=== PATIENT | male | born 1965 | race Caucasian/White ===

== ENCOUNTER → 2017-09-17 16:53 | Outpatient (CLI) | payer OTHER, SELFPAY ==
[2017-09-17 16:59] LABS: Bacteria 0 SEEN /hpf (None Seen); Mucous, Urine 0 SEEN /hpf (<or=2+); Red Blood Cells-Urine 0 SEEN /hpf (0-5); Squamous Epithelial Cells - UA 0 SEEN /hpf (0-5); White Blood Cells 0 SEEN /hpf (0-5)
[2017-09-17 17:38] LABS: Absolute Neutrophil Count 4.2 X10^3/uL (2.0-7.7); Basophil# 0.01 X10^3/uL; Basophil% 0.1 % (0-1); Eosinophil# 0.09 X10^3/uL; Eosinophils% 1.2 % (0-5); Hematocrit 43.7 % (40-54); Hemoglobin 15.4 g/dl (13.0-16.5); Lymphocyte % 34.9 % (19-41); Mean Corp Hgb Conc 35.2 g/gl (32-36); Mean Corpuscular Hgb 30.7 pg (27.0-32.0); Mean Corpuscular Volume 87.1 fL (80-94); Mean Platelet Vol. 12.3 fl (6.2-12.0); Monocyte# 0.59 X10^3/uL; Monocyte% 7.9 % (0-10); Neutrophil # 4.15 X10^3/uL (2.7-7.7); Neutrophil % 55.8 % (47-70); Platelet Count 202 K/mm3 (150-450); RBC Distribution Width CV 12.4 % (11.6-14.6); RBC Distribution Width SD 38.8 fl (35.1-43.9); Red Blood Count 5.02 M/mm3 (4.6-6.2); White Blood Count 7.5 K/mm3 (4.4-11.0)
[2017-09-17 17:50] LABS: Color, Urine Yellow (Yellow); Glucose, Dipstick Normal (Normal); Ketone-Dipstick Negative (Negative); Leukocyte Esterase-Dipstick Negative /ul (Negative); Nitrite-Dipstick Negative (Negative); Occult Blood-Urine Negative /ul (Negative); Protein-Dipstick Negative (Negative); Specific Gravity, Urine 1.025 (1.002-1.030); Urine Bilirubin Dipstick Negative (Negative); Urine Clarity Clear (Clear); Urine Urobilinogen Normal (Normal)
[2017-09-17 17:52] LABS: POSITIVE COUNT NO; POSITIVE DIFFERENTIAL NO; POSITIVE MORPHOLOGY NO
[2017-09-17 19:14] LABS: ALB/GLOB Ratio 1.2 RATIO (0.9-2.4); AST(SGOT) 34 U/L (15-37); Alanine Aminotransfer ALT/SGPT 52 U/L (16-61); Albumin, Serum 4.1 g/dL (3.2-5.0); Alkaline Phosphatase 79 U/L (45-117); Anion Gap 10 (5-15); BUN 16 mg/dL (7-18); BUN/Creat Ratio 14.8 RATIO (10-20); Calcium,Total 8.4 mg/dL (8.5-10.1); Chloride 104 mmol/L (98-107); Cholesterol 193 mg/dL (200); Creatinine, Serum 1.08 mg/dL (0.70-1.30); EST Glomerular Filtration Rate 76 mL/min (>60); Est Glom Filt Rate - Afr Amer 92 mL/min (>60); Globulin 3.3 g/dL (2.2-4.2); Glucose 92 mg/dL (74-106); High Density Lipoprotein 28 mg/dL; Potassium 3.7 mmol/L (3.5-5.1); Protein, Total 7.4 g/dL (6.4-8.2); Sodium Level 141 mmol/L (136-145); Thyroid Stim Hormone (TSH) 1.97 uIU/mL (0.358-3.74); Triglycerides 531 mg/dL
== END ==
PROVIDERS: Family Provider Family Medicine; PCP Family Medicine; Visit Provider Family Medicine
DX: R03.0 Elevated blood-pressure reading, without diagnosis of hypertension (principal); F32.9 Major depressive disorder, single episode, unspecified
CPT/HCPCS: 36415; 80053; 80061; 81001; 84443; 85025

== ENCOUNTER 2017-10-12 09:29 | Day surgery (SDC) | payer OTHER, SELFPAY ==
[2017-10-12] VITALS (7 sets, daily range): BP systolic 125–136; BP diastolic 72–91; PULSE 63–82; RESP 14–16; TEMP 36.2–37.6; O2SAT 92–99; BMI 32.9
--- NOTE | 2017-10-12 10:30 | COLBX_PTH ---
PATIENT: CORIE RICH LOC: EN U#:[id number] AGE/SX: 52/M ROOM: RE10/12/[address]: Dr. Karan Benitez MD : 1965 BED: DIS: 10/12/2017 SPEC #: [id number] RECD: 10/12/17 14:21 STATUS: ALIYAH BLANQUITA #: [id number] PAULINA: 10/12/17 10:[address]: Karan Benitez DEPT: SURGICAL PATHOLOGY RECD BY: Lucius José ENTERED: 10/12/17 14:44 SP TYPE: COLON BX OTHR DR: Dr. Ciro Hunt MD Tissues: Descending colon Procedures: Surgery Specimen Level IV HEADER OPERATION: Colonoscopy ? open access (MAC) PRE-OP DIAGNOSIS: Screening TISSUE SUBMITTED: Polyp at descending colon MICROSCOPIC DIAGNOSIS Polyp at descending colon, biopsy: Tubular adenoma. WILLIAM:robert 10/13/17 MICROSCOPIC DESCRIPTION Slides are reviewed. GROSS DESCRIPTION Received in fixative is one container labeled with the patient's name and designated descending colon polyp. The specimen consists of one irregular fragment of light ramirez soft tissue that measures 0.2 x 0.1 x 0.1 cm. The specimen is totally submitted in one cassette. / AM:robert 10/12/17 TC:1 CPT: 13294
--- NOTE | 2017-10-12 11:00 | PCM.HP.STD ---
Problem List (1) Colon cancer screening Status: Acute History of Present Illness Date of Admission: 10/12/17 The patient is a 52 year old M who presents for a screening colonoscopy. Past Medical History Allergies No Known Allergies Allergy (Verified 10/09/17 09:36) Home Medications: Ambulatory Orders Medication Instructions Recorded Sertraline HCl [Zoloft] 25 mg PO DAILY 10/09/17 Smoking Status: Never smoker - *Family History Maternal History Items: No pertinent history Review of Systems Gastrointestinal: Denies: Abdominal Pain, Constipation, Diarrhea, Hematemesis, Nausea, Melena, Vomiting VTE Information - Inpt Only VTE Present on Admission: No VTE Mechan Device Prophylaxis: None VTE Pharm Prophylaxis ordered?: No Reason prophylaxis not ordered:: Treatment Not Indicated Patient Problems: Active and Suspected Problems Colon cancer screening (Acute) - Physical Exam Lungs: Clear to auscultation Cardiovascular: Regular rate, Regular Rhythm, No murmurs Abdomen: Bowel Sounds Present, Soft, Non Tender, Non-Distended Vital Signs Temp Pulse Resp BP Pulse Ox 97.2 F L 82 14 129/91 H 99 10/12/17 09:52 10/12/17 09:52 10/12/17 09:52 10/12/17 09:52 10/12/17 09:52 Oxygen Delivery Method Room Air Weight: 216 lb 7.903 oz Body Mass Index (BMI) 32.9 Assessment/Plan All Active Problems Colon cancer screening (Acute) To perform a colonoscopy on the patient. Risks benefits have been reviewed.
--- NOTE | 2017-10-12 11:03 | PCM.OPRPT ---
Problem List (1) Colon cancer screening Status: Acute Report of Operation Date of Procedure: 10/12/17 Pre-Operative Diagnosis: Screening colonoscopy Post-Operative Diagnosis: Same Surgery/Procedure Performed:: Colonoscopy with snare polypectomy Type of Anesthesia:: MAC Anesthesiologist: Jesus Almeida Description of Procedure: Patient was brought into the endoscopy suite placed in the left lateral decubitus position he was given graded anesthesia of the scope was inserted into the rectum. The scope was directed through the sigmoid colon, descending colon, transverse colon, descending colon, to the cecum without difficulty. Operative findings: 1. Cecum: Normal appearance no mass lesions normal ileocecal valve. 2. Ascending colon: Normal appearance no mass lesions. 3. Transverse colon: Normal appearance no mass lesions. 4. Descending colon: Normal. Small hyperplastic polyp was identified and removed with snare cautery technique and brought back through the channel of the scope. Excellent hemostasis was noted. 5. Sigmoid colon: Normal appearance no mass lesions scattered diverticuli identified. 6. Rectum: Normal appearance no mass lesions. The scope was withdrawn and digital rectal exam was performed showing no masses within the anus and a smooth small prostate. Patient will need to have another colonoscopy in 3 years - Admit VTE Documentation VTE Present on Admission: No VTE Mechan Device Prophylaxis: None VTE Pharm Prophylaxis ordered?: No Reason prophylaxis not ordered:: Treatment Not Indicated
== END 2017-10-12 11:47 | disposition home or self-care (01) ==
LOC: EN 09:30 → AC 09:33
PROVIDERS: Family Provider Family Medicine; PCP Family Medicine; Visit Provider Surgery
PROC: 0DJD8ZZ Inspection of Lower Intestinal Tract, Via Natural or Artificial Opening Endoscopic (ICD-10-PCS; CPT 45378; principal; 2017-10-12 10:25)
DX: Z12.11 Encounter for screening for malignant neoplasm of colon (principal); D12.4 Benign neoplasm of descending colon; K57.30 Diverticulosis of large intestine without perforation or abscess without bleeding; Z79.899 Other long term (current) drug therapy
CPT/HCPCS: 45380; 88305; J7120

== ENCOUNTER → 2018-01-01 08:01 | Outpatient (CLI) | payer OTHER, SELFPAY ==
--- OUTSIDE RECORDS SUMMARY | 2017-12-31 08:24 | XMS RPT_ITS ---
:1965 Author Organization [facility] Care Team Providers Name Role Phone DOCTOR, OUT OF TOWN Attending Unavailable DOCTOR, OUT OF TOWN Primary Care Unavailable Ciro Hunt Attending Unavailable Ciro Hunt Primary Care Unavailable Nurse, Standard Attending Unavailable Ciro Hunt Referring Unavailable Karan Benitez Attending Unavailable Karan Benitez Referring Unavailable Ciro Hunt Primary Care Unavailable Karan Benitez Attending Unavailable Karan Benitez Referring Unavailable Ciro Hunt Primary Care Unavailable Karan Benitez Consulting Unavailable Ciro Hunt Attending Unavailable Ciro Hunt Primary Care Unavailable PROBLEMS PROBLEMS DATE TYPE CONDITION / CODE ATTENDING STATUS SOURCE 12/08/2017 Unknown R03.0 - Elevated Ciro Hunt Active Colt blood-pressure E Community reading, without Hospital diagnosis of Repository hypertension / R03.0(ICD-10) PROCEDURES PROCEDURES No Procedure Records FoundRESULTS RESULTS OPERATIVE REPORT Observed: 10/12/2017 Status: F Source: MARYAM 11:05 AM [facility] RE[facility] [id number] [place], [place] [address]Cvujeuwee Qqziyh46/06/18 1103MR#: [id number] Acct: [id number]: HILARIOCORIE J Rep #: [id number]: 1965 52 From: Karan Benitez MDPCP: Ciro Hunt MD Status: REG [facility] YLocation: [id number] List(1) Colon cancer screeningStatus: AcuteReport of OperationDate of Procedure: 10/12/17Pre-Operative Diagnosis: Screening colonoscopyPost-Operative Diagnosis: SameSurgery/Procedure Performed:: Colonoscopy with snare polypectomyType of Anesthesia:: Alexandrathesiologist: Perry Almeidacription of Procedure:Patient was brought into the endoscopy suite placed in the left lateral decubitus position hewas given graded anesthesia of the scope was inserted into the rectum. The scope was directedthrough the sigmoid colon, descending colon, transverse colon, descending colon, to the cecumwithout difficulty. Operative findings:1. Cecum: Normal appearance no mass lesions normal ileocecal valve.2. Ascending colon: Normal appearance no mass lesions.3. Transverse colon: Normal appearance no mass lesions.4. Descending colon: Normal. Small hyperplastic polyp was identified and removed with snarecautery technique and brought back through the channel of the scope. Excellent hemostasis wasnoted.5. Sigmoid colon: Normal appearance no mass lesions scattered diverticuli identified.6. Rectum: Normal appearance no mass lesions. The scope was withdrawn and digital rectal examwas performed showing no masses within the anus and a smooth small prostate. Patient will needto have another colonoscopy in 3 years- Admit VTE DocumentationVTE Present on Admission: NoVTE Mechan Device Prophylaxis: NoneVTE Pharm Prophylaxis ordered?: NoReason prophylaxis not ordered:: Treatment Not Ykrjndzew70/06/18 1105 <Electronically signed by Karan Benitez MD>Date Karan Benitez MDCC: Karan Benitez MD; Ciro Hunt MD Signed HISTORY AND PHYSICAL Observed: 10/12/2017 Status: F Source: [place] EXAM 11:02 AM [facility] RE[facility]ITORY [facility] [id number] [place] [address]Dkfogqb and Nsmwwsaf85/06/18 1100MR#: [id number] Acct: [id number]: HILARIOCORIE Marcos Rep #: [id number]: 1965 52 From: Karan Benitez MDPCP: Ciro Hunt MD Status: REG [facility] YLocation: [id number] List(1) Colon cancer screeningStatus: AcuteHistory of Present IllnessDate of Admission: 10/12/17The patient is a 52 year old M who presents for a screening colonoscopy.Past Medical HistoryAllergiesNo Known Allergies Allergy (Verified 10/09/17 09:36)Home Medications:Ambulatory OrdersMedication Instructions RecordedSertraline HCl [Zoloft] 25 mg PO DAILY 10/09/17moking Status: Never smoker- *Family History MaternalHistory Items: No pertinent historyReview of SystemsGastrointestinal: Denies: Abdominal Pain, Constipation, Diarrhea, Hematemesis, Nausea, Melena,VomitingVTE Information - Inpt OnlyVTE Present on Admission: NoVTE Mechan Device Prophylaxis: NoneVTE Pharm Prophylaxis ordered?: NoReason prophylaxis not ordered:: Treatment Not IndicatedPatient Problems:Active and Suspected ProblemsColon cancer screening (Acute)- Physical ExamLungs: Clear to auscultationCardiovascular: Regular rate, Regular Rhythm, No murmursAbdomen: Bowel Sounds Present, Soft, Non Tender, Non-DistendedVital SignsTemp Pulse Resp BP Pulse Ox97.2 F L 82 14 129/91 H 09:52 10/12/17 09:52 10/12/17 09:52 10/12/17 09:52 10/12/17 09:52Oxygen Delivery Method Room AirWeight: 216 lb 7.903 ozBody Mass Index (BMI) 32.9Assessment/PlanAll Active ProblemsColon cancer screening (Acute)To perform a colonoscopy on the patient. Risks benefits have been reviewed.10/12/17 1102 <Electronically signed by Karan Benitez MD>Date Karan Benitez MDCosigner Signature: Date (if applicable)CC: Karan Benitez MD; Ciro Hunt MD Signed COLON BIOPSY (CHOOSE Observed: 10/12/2017 Status: F Source: [place] SITE) 10:30 AM [facility] REPOSITORY Patient: CORIE RICH : 1965 (52/M) Acct Num: [id number] Phys: Eli HUNTER,Karan Unit Num: [id number] Loc: EN Specimen: [id number] Received: 10/12/171420 Spec Type: COLON BX TISSUES TISSUES: Descending colon GROSS DESCRIPTION Received in fixative is one container labeled with the patient's name and designated descending colon polyp. The specimen consists of one irregular fragment of light ramirez soft tissue that measures 0.2 x 0.1 x 0.1 cm. The specimen is totally submitted in one cassette. / AM:robert 10/12/17 TC:1 CPT: 80454 HEADER OPERATION: Colonoscopy open access (MAC) PRE-OP DIAGNOSIS: Screening TISSUE SUBMITTED: Polyp at descending colon MICROSCOPIC DESCRIPTION Slides are reviewed. MICROSCOPIC DIAGNOSIS Polyp at descending colon, biopsy: Tubular adenoma. SJ:robert 10/13/17 Signed Gene Flaherty 10/13/17 <signature on file> Performed By: #### PCOLBX ####[facility] [id number] [place], [address] CBC W/DIFF, AUTOMATED Collected: 09/17/2017 Status: F Source: MARYAM 4:56 PM [facility] REPOSITORY Order Comment: Order Date: 09/17/17Order Info: [id number] - CBCD TYPE CODE TESTS RESULT OUT OF RANGE REFERENCE UNITS LAB L100.1000 Normal 4.4-11.0 K/mm3 WBC 7.5 LAB L100.1200 Normal 4.6-6.2 M/mm3 RBC 5.02 LAB L100.1300 Normal 13.0-16.5 g/dl HGB 15.4 LAB L100.1400 Normal 40-54 % HCT 43.7 LAB L100.1500 Normal 80-94 fL MCV 87.1 LAB L100.1600 Normal 27.0-32.0 pg MCH 30.7 LAB L100.1700 Normal 32-36 g/gl MCHC 35.2 LAB L100.1810 Normal 11.6-14.6 % RDW 12.4 CV LAB L100.1820 Normal 35.1-43.9 fl RDW 38.8 SD LAB L100.1900 Normal 150-450 K/mm3 PLT 202 LAB L100.2000 High 6.2-12.0 fl MPV 12.3 LAB L100.2100 Normal 47-70 % NEUT% 55.8 LAB L100.2200 Normal 19-41 % LY% 34.9 LAB L100.2300 Normal 0-10 % MONO% 7.9 LAB L100.2400 Normal 0-5 % EO% 1.2 LAB L100.2500 Normal 0-1 % BASO% 0.1 LAB L100.2550 Normal 0.0-0.9 % IM 0.100 GRAN % Result Comment: IG% - Immature Granulocytes (promyelocytes, myelocytes and metamyelocytes) > 1% indicates that a LEFT SHIFT is Present. LAB L100.2620 Normal 2.0-7.7 X10 3/uL Absolute Neut 4.2 LAB L100.2720 Normal 0.83-4.51 X10 3/ul Absolute Lymph 2.60 Performed By: #### L100.0100, L500.4050, L500.4100, L501.9520 #### [facility] [address] [place], [address] COMPREHENSIVE METABOLIC Collected: 09/17/2017 Status: F Source: MARYAM GOLD 4:56 PM [facility] REPOSITORY Order Comment: Order Date: 09/17/17Order Info: [id number] - CMPOrder Info: [id number] - LIPIDOrder Info: [id number] - TSH TYPE CODE TESTS RESULT OUT OF RANGE REFERENCE UNITS LAB L501.0100 Normal 74-106 mg/dL GLU 92 Result Comment: Please note revised GLUCOSE reference range effective 2017. LAB L501.1000 Normal 7-18 mg/dL BUN 16 LAB L501.1100 Normal 0.70-1.30 mg/dL CREAT,SERUM 1.08 Result Comment: The validity of the calculated GFR AND GFRAA in patients over 70 years has not been determined. Clinical correlation is essential. LAB L501.1110 Normal >60 mL/min EST GFR 76 Result Comment: Non- GFR Calc LAB L501.1115 Normal >60 mL/min EST GFR - AA 92 Result Comment: GFR Calc LAB L501.1300 Normal 10-20 RATIO BUN/CRE 14.8 LAB L501.1500 Normal 6.4-8.2 g/dL T PROT 7.4 LAB L501.1800 Normal 3.2-5.0 g/dL ALB 4.1 LAB L501.1950 Normal 2.2-4.2 g/dL GLOB 3.3 LAB L501.2000 Normal 0.9-2.4 RATIO A/G 1.2 LAB L501.2200 Low 8.5-10.1 mg/dL CA 8.4 LAB L501.4100 Normal 15-37 U/L AST 34 LAB L501.4305 Normal 45-117 U/L ALK P 79 LAB L501.4405 Normal 16-61 U/L ALT 52 LAB L501.4600 Normal 0.20-1.00 mg/dL T BILI 0.40 LAB L501.5300 Normal 136-145 mmol/L NA 141 LAB L501.5600 Normal 3.5-5.1 mmol/L K 3.7 LAB L501.5900 Normal 98-107 mmol/L CL 104 LAB L501.6100 Normal 21.0-32.0 mmol/L CO2 27.0 LAB L501.6200 Normal 5-15 GAP 10 Performed By: #### L100.0100, L500.4050, L500.4100, L501.9520 #### [facility] [address] [place], [place], [address] LIPID PROFILE Collected: 09/17/2017 Status: F Source: MARYAM 4:56 PM [facility] REPOSITORY Order Comment: Order Date: 09/17/17Order Info: [id number] - CMPOrder Info: [id number] - LIPIDOrder Info: [id number] - TSH TYPE CODE TESTS RESULT OUT OF RANGE REFERENCE UNITS LAB L501.4900 Normal 200 mg/dL CHOL 193 Result Comment: <200 mg/dL Desirable 200-240 mg/dL Borderline >240 mg/dL High Risk LAB L501.5000 High mg/dL TRIG 531 Result Comment: The drugs N-Acetylcysteine and Metamizole may falsely depress this assay. TRIGLYCERIDE IS GREATER THAN 400 mg/dL. LDL RESULT IS INVALID AND WILL NOT BE REPORTED. Serum Triglycerides Reference Interval Normal <150 mg/dL Borderline high 150 - 199 mg/dL High 200 - 499 mg/dL Very High > or = 500 mg/dL LAB L501.6400 Low mg/dL HDL 28 Result Comment: The drugs N-Acetylcysteine and Metamizole may falsely depress this assay. Reference Range HDL <40 mg/dL Low HDL Cholesterol HDL >or= 60 mg/dL High HDL Cholesterol LAB L501.6500 Normal 0-130 mg/dL Test not LDL performed LAB L501.6600 Normal 5-40 mg/dL Test not VLDL performed Performed By: #### L100.0100, L500.4050, L500.4100, L501.9520 #### [facility] [address] [place], [place], [id number] THYROID STIM HORMONE Collected: 09/17/2017 Status: F Source: MARYAM (TSH) 4:56 PM [facility] REPOSITORY Order Comment: Order Date: 07/12/18Order Info: [id number] - CMPOrder Info: [id number] - LIPIDOrder Info: [id number] - TSH TYPE CODE TESTS RESULT OUT OF RANGE REFERENCE UNITS LAB L501.9520 Normal 0.358-3.74 uIU/mL TSH 1.97 Performed By: #### L100.0100, L500.4050, L500.4100, L501.9520 #### [facility] [address] [place], [place], [address] URINALYSIS, COMPLETE Collected: 09/17/2017 Status: F Source: [place] 4:56 PM [facility] REPOSITORY Order Comment: How was Urine Obtained? CLEAN CATCH TYPE CODE TESTS RESULT OUT OF RANGE REFERENCE UNITS LAB L400.3000 Normal Yellow COLOR Yellow LAB L400.3050 Normal Clear CLARITY Clear LAB L400.3200 Normal Normal mg/dl GLUCOSE, UR Normal LAB L400.3300 Normal Negative mg/dL BILIRUBIN Negative URINE LAB L400.3400 Normal Negative mg/dl KETONE UR Negative LAB L400.3465 Normal 1.002-1.030 SP.GR. 1.025 DIPSTX LAB L400.3550 Normal 5.0 - 8.0 pH UR 5.0 LAB L400.3600 Normal Negative mg/dl PROT DIPSTX Negative LAB L400.3700 Normal Normal mg/dl UROBILI Normal LAB L400.3750 Normal Negative NITRITE UR Negative LAB L400.3780 Normal Negative /ul OCCULT Negative BLOOD-UR LAB L400.3800 Normal Negative /ul LEUK Negative ESTERASE LAB L400.4050 Normal 0-5 /hpf WBC 0 SEEN LAB L400.4100 Normal 0-5 /hpf RBC-UA 0 SEEN LAB L400.4150 Normal 0-5 /hpf SQUAM EPI 0 SEEN LAB L400.4300 Normal None Seen /hpf BACTERIA 0 SEEN LAB L400.4350 Normal <or=2+ /hpf MUCUS, 0 SEEN URINE Performed By: #### L400.0001 #### [facility] [address] [place], [place], [address] ALLERGIES ALLERGIES DATE TYPE / CODE NAME / CODE REACTION SEVERITY SOURCE 10/09/2017 Drug No Known Unknown [facility] Allergy/4160 Allergies/F00 [facility] [address](SNOMED 2752845(RXNOR Repository CT) M) ENCOUNTERS ENCOUNTERS ADMIT/DISCHARGE ACCOUNT ADMITTING ENCOUNTER LOCATION SOURCE NUMBER CLASS 12/31/2017 [id number] Ambulatory Maryam Maryam 5 [facility] ing:MFPLAB Repository 12/23/2017 [id number] Ambulatory Maryam Colt 6 [facility] ing:MASS Repository 10/12/2017/ [id number] Ambulatory Maryam Colt 8 5 [facility] ing:EN Repository 10/12/2017 [id number] Ambulatory BMSBuilding:B Maryam 1 MS.[facility] Repository 09/23/2017/ [id number] Ambulatory BMSBuilding:B Maryam 8 8 MS.[facility] Repository 09/17/2017 [id number] Ambulatory Colt Colt 0 [facility] ing:MFPLAB Repository PAYERS PAYERS ENCOUNTER GUARANTOR PAYER SUBSCRIBER SOURCE 12/31/2017 CORIE Rodríguez Primary Insurance:[facility] CORIE Rodríguez Colt [id number] [facility] [address]Vpaxwy DOUGLASSDOB: [facility] Number: [id number] [id number] Repository [address]Rfo: 574) Date:9790-71-57AG [phone] () [address], [place] [address]XK: 12/31/2017 Secondary CRYSTAL Colt Insurance:MEDICAL DOUGLASSDOB: [facility] [id number] [facility] Number: Repository [id number] Date:0352-85-14[address], [place] [address]FW: 12/31/2017 Tertiary NOT GIVENUNK Colt Insurance:SELF PAY [facility] Number: Effective Repository Date:2017-12-31 12/23/2017 CORIE Rodríguez Primary NOT GIVENUNK Maryam [id number] Insurance:SELF PAY [place] Number: Effective Repository [phone]: ([phone]) Date:2015-03-15 [phone] () 10/12/2017 CORIE Rodríguez Primary Insurance:UMR CORIE Spivey [id number] [address] [id number] DOUGLASSDOB: [facility] Number: [id number], [place] [id number] Repository [address]Zlh: [phone]) Date:2569-66-83BN [phone] () [address] [place] [phone]: 10/12/2017 Secondary CRYSTAL Maryam Insurance:MEDICAL DOUGLASSDOB: [facility] [id number] Hospital Number: Repository [id number] Date:4001-98-49LA [address] [place] [phone]: 10/12/2017 Tertiary NOT GIVENUNK Maryam Insurance:SELF PAY [facility] Number: Effective Repository Date:2017-09-23 10/12/2017 CORIE Rodríguez Primary Insurance:UMR CORIE Godinezoster [id number] JOSE [id number] DOUGLASSDOB: [facility] Number: [id number], [place] [id number] Repository [address]Cqt: ([phone]) Date:0765-15-57NC [phone] () [address] [place] [phone]: 10/12/2017 Secondary CRYSTAL Maryam Insurance:MEDICAL DOUGLASSDOB: [facility] [id number] Hospital Number: Repository [id number] Date:4705-62-19IZ [address] [place] [phone]: 10/12/2017 Tertiary NOT GIVENUNK Colt Insurance:SELF PAY [facility] Number: Effective Repository Date:2017-10-12 09/23/2017 CORIE Primary Insurance:UMR CORIE Spivey [id number] JO[address] [id number] DOUGLASSDOB: [facility] Number: [id number], [place] [id number] Repository [address]Vbe: ([phone]) Date:6139-28-26RA [phone] () [address], [place] [address]WT: 09/23/2017 Secondary NOT GIVENUNK Colt Insurance:SELF PAY [facility] Number: Effective Repository Date:2017-09-23 09/17/2017 CORIE Rodríguez Primary Insurance:UMR CORIE Rodríguez Maryam [id number] [facility] [id number] DOUGLASSDOB: [facility] Number: [id number], [place] [id number] Repository [address]Siq: ([phone]) Date:6283-37-92FE [phone] () [address], [place] [address]ZY: 09/17/2017 Secondary CORIE Rodríguez Colt Insurance:MEDICAL DOUGLASSDOB: [facility] [id number] Hospital Number: Repository [id number] Date:7095-50-47LQ [address], [place] [address]QM: 09/17/2017 Tertiary NOT GIVENUNK Maryam Insurance:SELF PAY [facility] Number: Effective Repository Date:2017-09-17
[2018-01-01 08:05] LABS: Bacteria 0 SEEN /hpf (None Seen); Mucous, Urine 0 SEEN /hpf (<or=2+); Red Blood Cells-Urine 0 SEEN /hpf (0-5); Squamous Epithelial Cells - UA 0 SEEN /hpf (0-5); White Blood Cells 0 SEEN /hpf (0-5)
[2018-01-01 10:11] LABS: Color, Urine Yellow (Yellow); Glucose, Dipstick Normal (Normal); Ketone-Dipstick Negative (Negative); Leukocyte Esterase-Dipstick Negative /ul (Negative); Nitrite-Dipstick Negative (Negative); Occult Blood-Urine Negative /ul (Negative); Protein-Dipstick Negative (Negative); Specific Gravity, Urine 1.015 (1.002-1.030); Urine Bilirubin Dipstick Negative (Negative); Urine Clarity Clear (Clear); Urine Urobilinogen Normal (Normal)
[2018-01-01 10:17] LABS: Absolute Lymphocyte Count 1.78 X10^3/ul (0.83-4.51); Absolute Neutrophil Count 2.8 X10^3/uL (2.0-7.7); Basophil# 0.02 X10^3/uL; Basophil% 0.4 % (0-1); Eosinophil# 0.06 X10^3/uL; Eosinophils% 1.2 % (0-5); Hematocrit 45.5 % (40-54); Hemoglobin 15.8 g/dl (13.0-16.5); Lymphocyte # 1.78 X10^3/ul (4.0); Lymphocyte % 35.9 % (19-41); Mean Corp Hgb Conc 34.7 g/gl (32-36); Mean Corpuscular Hgb 30.5 pg (27.0-32.0); Mean Corpuscular Volume 87.8 fL (80-94); Mean Platelet Vol. 12.5 fl (6.2-12.0); Monocyte# 0.34 X10^3/uL; Monocyte% 6.9 % (0-10); Neutrophil # 2.75 X10^3/uL (2.7-7.7); Neutrophil % 55.4 % (47-70); POSITIVE COUNT NO; POSITIVE DIFFERENTIAL NO; POSITIVE MORPHOLOGY NO; Platelet Count 184 K/mm3 (150-450); RBC Distribution Width CV 12.1 % (11.6-14.6); RBC Distribution Width SD 38.8 fl (35.1-43.9); Red Blood Count 5.18 M/mm3 (4.6-6.2)
[2018-01-01 10:35] LABS: ALB/GLOB Ratio 1.1 RATIO (0.9-2.4); AST(SGOT) 21 U/L (15-37); Alanine Aminotransfer ALT/SGPT 42 U/L (16-61); Albumin, Serum 3.8 g/dL (3.2-5.0); Alkaline Phosphatase 72 U/L (45-117); Anion Gap 7 (5-15); BUN 16 mg/dL (7-18); BUN/Creat Ratio 15.5 RATIO (10-20); Calcium,Total 8.7 mg/dL (8.5-10.1); Chloride 106 mmol/L (98-107); Cholesterol 200 mg/dL (200); Creatinine, Serum 1.03 mg/dL (0.70-1.30); EST Glomerular Filtration Rate 80 mL/min (>60); Est Glom Filt Rate - Afr Amer 97 mL/min (>60); Globulin 3.4 g/dL (2.2-4.2); Glucose 97 mg/dL (74-106); High Density Lipoprotein 31 mg/dL; Potassium 3.9 mmol/L (3.5-5.1); Protein, Total 7.2 g/dL (6.4-8.2); Sodium Level 141 mmol/L (136-145); Triglycerides 328 mg/dL; Very Low Density Lipoprotein 66 mg/dL (5-40)
== END ==
PROVIDERS: Family Provider Family Medicine; PCP Family Medicine; Visit Provider Family Medicine
DX: I10 Essential (primary) hypertension (principal); E78.1 Pure hyperglyceridemia
CPT/HCPCS: 36415; 80053; 80061; 81001; 85025

== ENCOUNTER → 2018-04-28 08:03 | Outpatient (CLI) | payer OTHER, SELFPAY ==
[2018-04-28 10:16] LABS: Absolute Lymphocyte Count 1.65 X10^3/ul (0.83-4.51); Absolute Neutrophil Count 3.1 X10^3/uL (2.0-7.7); Basophil# 0.03 X10^3/uL; Basophil% 0.6 % (0-1); Eosinophil# 0.06 X10^3/uL; Eosinophils% 1.1 % (0-5); Hematocrit 46.3 % (40-54); Hemoglobin 15.8 g/dl (13.0-16.5); Lymphocyte # 1.65 X10^3/ul (4.0); Lymphocyte % 31.6 % (19-41); Mean Corp Hgb Conc 34.1 g/gl (32-36); Mean Corpuscular Hgb 30.3 pg (27.0-32.0); Mean Corpuscular Volume 88.9 fL (80-94); Mean Platelet Vol. 12.7 fl (6.2-12.0); Monocyte# 0.34 X10^3/uL; Monocyte% 6.5 % (0-10); Neutrophil # 3.13 X10^3/uL (2.7-7.7); Platelet Count 195 K/mm3 (150-450); RBC Distribution Width CV 12.6 % (11.6-14.6); RBC Distribution Width SD 40.9 fl (35.1-43.9); Red Blood Count 5.21 M/mm3 (4.6-6.2); White Blood Count 5.2 K/mm3 (4.4-11.0)
[2018-04-28 10:21] LABS: ALB/GLOB Ratio 1.4 RATIO (0.9-2.4); AST(SGOT) 27 U/L (15-37); Alanine Aminotransfer ALT/SGPT 54 U/L (16-61); Albumin, Serum 4.2 g/dL (3.2-5.0); Alkaline Phosphatase 71 U/L (45-117); Anion Gap 10 (5-15); BUN 18 mg/dL (7-18); BUN/Creat Ratio 15.7 RATIO (10-20); Calcium,Total 8.9 mg/dL (8.5-10.1); Chloride 105 mmol/L (98-107); Cholesterol 198 mg/dL (200); Creatinine, Serum 1.15 mg/dL (0.70-1.30); EST Glomerular Filtration Rate 70 mL/min (>60); Est Glom Filt Rate - Afr Amer 85 mL/min (>60); Globulin 3.1 g/dL (2.2-4.2); Glucose 93 mg/dL (74-106); High Density Lipoprotein 32 mg/dL; Potassium 3.9 mmol/L (3.5-5.1); Protein, Total 7.3 g/dL (6.4-8.2); Sodium Level 140 mmol/L (136-145); Triglycerides 276 mg/dL; Very Low Density Lipoprotein 55 mg/dL (5-40)
[2018-04-28 10:37] LABS: POSITIVE COUNT NO; POSITIVE DIFFERENTIAL NO; POSITIVE MORPHOLOGY NO
== END ==
PROVIDERS: Family Provider Family Medicine; PCP Family Medicine; Referring Provider Family Medicine; Visit Provider Family Medicine
DX: I10 Essential (primary) hypertension (principal); E78.1 Pure hyperglyceridemia
CPT/HCPCS: 36415; 80053; 80061; 85025

== ENCOUNTER → 2018-11-04 | Outpatient (CLI) | payer OTHER, SELFPAY ==
[2018-11-04 10:34] LABS: ALB/GLOB Ratio 1.2 RATIO (0.9-2.4); AST(SGOT) 25 U/L (15-37); Alanine Aminotransfer ALT/SGPT 48 U/L (16-61); Albumin, Serum 3.9 g/dL (3.2-5.0); Alkaline Phosphatase 66 U/L (45-117); Anion Gap 9 (5-15); BUN 26 mg/dL (7-18); BUN/Creat Ratio 22.2 RATIO (10-20); Calcium,Total 8.8 mg/dL (8.5-10.1); Chloride 107 mmol/L (98-107); Cholesterol 180 mg/dL (200); Creatinine, Serum 1.17 mg/dL (0.70-1.30); EST Glomerular Filtration Rate 69 mL/min (>60); Est Glom Filt Rate - Afr Amer 83 mL/min (>60); Globulin 3.3 g/dL (2.2-4.2); Glucose 94 mg/dL (74-106); High Density Lipoprotein 34 mg/dL; Potassium 3.8 mmol/L (3.5-5.1); Protein, Total 7.2 g/dL (6.4-8.2); Sodium Level 142 mmol/L (136-145); Triglycerides 193 mg/dL; Very Low Density Lipoprotein 39 mg/dL (5-40)
== END | disposition home or self-care (01) ==
LOC: MFPLAB 08:03
PROVIDERS: Family Provider Family Medicine; PCP Family Medicine; Referring Provider Family Medicine; Visit Provider Family Medicine
DX: E78.1 Pure hyperglyceridemia (principal); I10 Essential (primary) hypertension
CPT/HCPCS: 36415; 80053; 80061

== ENCOUNTER → 2019-04-29 | Outpatient (CLI) | payer BC, OTHER, SELFPAY ==
[2019-04-29 10:34] LABS: ALB/GLOB Ratio 1.3 RATIO (0.9-2.4); AST(SGOT) 24 U/L (15-37); Alanine Aminotransfer ALT/SGPT 64 U/L (16-61); Albumin, Serum 4.2 g/dL (3.2-5.0); Alkaline Phosphatase 70 U/L (45-117); Anion Gap 6 (5-15); BUN 19 mg/dL (7-18); BUN/Creat Ratio 17.4 RATIO (10-20); Chloride 104 mmol/L (98-107); Cholesterol 229 mg/dL (200); Creatinine, Serum 1.09 mg/dL (0.70-1.30); EST Glomerular Filtration Rate 75 mL/min (>60); Est Glom Filt Rate - Afr Amer 90 mL/min (>60); Globulin 3.2 g/dL (2.2-4.2); Glucose 97 mg/dL (74-106); High Density Lipoprotein 34 mg/dL; Protein, Total 7.4 g/dL (6.4-8.2); Sodium Level 139 mmol/L (136-145); Triglycerides 299 mg/dL; Very Low Density Lipoprotein 60 mg/dL (5-40)
== END | disposition home or self-care (01) ==
LOC: MFPLAB 08:14
PROVIDERS: PCP Family Medicine; Referring Provider Family Medicine; Visit Provider Family Medicine
DX: I10 Essential (primary) hypertension (principal); E78.1 Pure hyperglyceridemia
CPT/HCPCS: 36415; 80053; 80061

== ENCOUNTER → 2019-11-07 | Outpatient (CLI) | payer BC, OTHER, SELFPAY ==
[2017-10-12 09:52] VITALS: BMI 32.9
[2019-11-07 20:50] LABS: Anion Gap 7 (5-15); BUN 15 mg/dL (7-18); BUN/Creat Ratio 15.4 RATIO (10-20); Calcium,Total 8.7 mg/dL (8.5-10.1); Chloride 105 mmol/L (98-107); Creatinine, Serum 0.98 mg/dL (0.70-1.30); EST Glomerular Filtration Rate 85 mL/min (>60); Est Glom Filt Rate - Afr Amer 102 mL/min (>60); Glucose 78 mg/dL (74-106); Potassium 2.9 mmol/L (3.5-5.1); Sodium Level 139 mmol/L (136-145)
== END | disposition home or self-care (01) ==
LOC: MFPLAB 16:27
PROVIDERS: PCP Family Medicine; Referring Provider Family Medicine; Visit Provider Family Medicine
DX: I10 Essential (primary) hypertension (principal); Z12.5 Encounter for screening for malignant neoplasm of prostate
CPT/HCPCS: 36415; 80048; 84153; G0103

== ENCOUNTER → 2019-11-15 | Outpatient (CLI) | payer BC, OTHER, SELFPAY ==
[2017-10-12 09:52] VITALS: BMI 32.9
[2019-11-15 18:25] LABS: Cholesterol 201 mg/dL (200); High Density Lipoprotein 31 mg/dL; Potassium 3.2 mmol/L (3.5-5.1); Triglycerides 398 mg/dL; Very Low Density Lipoprotein 80 mg/dL (5-40)
== END | disposition home or self-care (01) ==
LOC: MFPLAB 16:43
PROVIDERS: PCP Family Medicine; Referring Provider Family Medicine; Visit Provider Family Medicine
DX: E87.6 Hypokalemia (principal); E78.1 Pure hyperglyceridemia
CPT/HCPCS: 36415; 80061; 84132

== ENCOUNTER → 2019-11-25 | Outpatient (CLI) | payer BC, OTHER, SELFPAY ==
[2019-11-25 10:42] LABS: Cholesterol 196 mg/dL (200); High Density Lipoprotein 36 mg/dL; Potassium 3.8 mmol/L (3.5-5.1); Triglycerides 170 mg/dL; Very Low Density Lipoprotein 34 mg/dL (5-40)
== END | disposition home or self-care (01) ==
LOC: MFPLAB 08:07
PROVIDERS: PCP Family Medicine; Referring Provider Family Medicine; Visit Provider Family Medicine
DX: E87.6 Hypokalemia (principal); E78.1 Pure hyperglyceridemia
CPT/HCPCS: 36415; 80061; 84132

== ENCOUNTER → 2020-05-01 15:06 | Outpatient (CLI) | payer BC, OTHER, SELFPAY ==
[2017-10-12 09:52] VITALS: BMI 32.9
[2020-05-01 17:36] LABS: Absolute Lymphocyte Count 2.32 X10^3/uL (0.83-4.51); Absolute Neutrophil Count 3.9 X10^3/uL (2.0-7.7); Basophil# 0.01 X10^3/uL; Basophil% 0.1 % (0-1); Eosinophil# 0.03 X10^3/uL; Eosinophils% 0.4 % (0-5); Hematocrit 49.4 % (40-54); Hemoglobin 16.6 g/dL (13.0-16.5); Lymphocyte # 2.32 X10^3/ul (4.0); Lymphocyte % 34.6 % (19-41); Mean Corp Hgb Conc 33.6 g/dL (32-36); Mean Corpuscular Hgb 29.3 pg (27.0-32.0); Mean Corpuscular Volume 87.1 fL (80-94); Mean Platelet Vol. 12.2 fl (6.2-12.0); NRBC Flagged by Analyzer 0 % (0-5); Neutrophil # 3.93 X10^3/uL (2.7-7.7); Neutrophil % 58.6 % (47-70); Platelet Count 241 K/mm3 (150-450); RBC Distribution Width CV 11.7 % (11.6-14.6); RBC Distribution Width SD 37.6 fl (35.1-43.9); Red Blood Count 5.67 M/mm3 (4.6-6.2); White Blood Count 6.7 K/mm3 (4.4-11.0)
[2020-05-01 18:07] LABS: ALB/GLOB Ratio 1.2 RATIO (0.9-2.4); AST(SGOT) 23 U/L (15-37); Alanine Aminotransfer ALT/SGPT 47 U/L (16-61); Albumin, Serum 4.5 g/dL (3.2-5.0); Alkaline Phosphatase 61 U/L (45-117); Anion Gap 7 (5-15); BUN 13 mg/dL (7-18); BUN/Creat Ratio 12.1 RATIO (10-20); Calcium,Total 9.3 mg/dL (8.5-10.1); Chloride 103 mmol/L (98-107); Cholesterol 239 mg/dL (200); Creatinine, Serum 1.07 mg/dL (0.70-1.30); EST Glomerular Filtration Rate 76 mL/min (>60); Est Glom Filt Rate - Afr Amer 92 mL/min (>60); Globulin 3.6 g/dL (2.2-4.2); Glucose 98 mg/dL (74-106); High Density Lipoprotein 37 mg/dL; Potassium 3.4 mmol/L (3.5-5.1); Protein, Total 8.1 g/dL (6.4-8.2); Sodium Level 136 mmol/L (136-145); Triglycerides 228 mg/dL; Very Low Density Lipoprotein 46 mg/dL (5-40)
== END ==
PROVIDERS: PCP Family Medicine; Referring Provider Family Medicine; Visit Provider Family Medicine
DX: E78.1 Pure hyperglyceridemia (principal); I10 Essential (primary) hypertension
CPT/HCPCS: 36415; 80053; 80061; 85025

== ENCOUNTER → 2020-09-27 11:54 | Outpatient (CLI) | payer BC, OTHER, SELFPAY ==
[2017-10-12 09:52] VITALS: BMI 32.9
--- NOTE | 2020-09-27 12:00 | RAD_ITS ---
STUDY: X-RAY - LEFT FOOT CLINICAL: Male, 54 years old. PAIN TECHNIQUE: 3 view(s) of the foot. COMPARISON: None. FINDINGS: Normal talus, calcaneus, and tarsal bones. Normal visualized subtalar, talonavicular, calcaneocuboid, tarsal and tarsometatarsal articulations. Normal metatarsi. Normal metatarsophalangeal joint of the great toe. Normal tibial and fibular sesamoid bones. Normal interphalangeal joint of the great toe. Normal phalanges of the great toe. Normal second through fifth metatarsophalangeal joints. Normal interphalangeal joints and phalanges of the lesser toes. The soft tissue structures are unremarkable. RAD/Foot min 3 Views IMPRESSION: Normal x-ray examination of the foot. Electronically Signed: Ky Petit MD at 14:53 EDT , Service support ,
== END ==
PROVIDERS: PCP Family Medicine; Referring Provider Family Medicine; Visit Provider Family Medicine
DX: M79.672 Pain in left foot (principal)
CPT/HCPCS: 73630

== ENCOUNTER → 2020-11-01 08:13 | Outpatient (CLI) | payer BC, OTHER, SELFPAY ==
[2020-11-01 08:16] LABS: Bacteria 0 SEEN /hpf (None Seen); Mucous, Urine 0 SEEN /hpf (<or=2+); Red Blood Cells-Urine 0 SEEN /hpf (0-5); Squamous Epithelial Cells - UA 0 SEEN /hpf (0-5)
[2020-11-01 09:56] LABS: Absolute Lymphocyte Count 1.96 X10^3/uL (0.83-4.51); Absolute Neutrophil Count 3.2 X10^3/uL (2.0-7.7); Basophil# 0.03 X10^3/uL; Basophil% 0.5 % (0-1); Eosinophil# 0.09 X10^3/uL; Eosinophils% 1.6 % (0-5); Hematocrit 44.6 % (40-54); Hemoglobin 15.6 g/dL (13.0-16.5); Lymphocyte # 1.96 X10^3/ul (0.83-4.51); Lymphocyte % 34.8 % (19-41); Mean Corpuscular Hgb 30.5 pg (27.0-32.0); Mean Corpuscular Volume 87.1 fL (80-94); Mean Platelet Vol. 11.6 fl (6.2-12.0); Monocyte# 0.38 X10^3/uL; Monocyte% 6.7 % (0-10); NRBC Flagged by Analyzer 0 % (0-5); Neutrophil # 3.16 X10^3/uL (2.7-7.7); Platelet Count 214 K/mm3 (150-450); RBC Distribution Width SD 38.1 fl (35.1-43.9); Red Blood Count 5.12 M/mm3 (4.6-6.2); White Blood Count 5.6 K/mm3 (4.4-11.0)
[2020-11-01 10:25] LABS: ALB/GLOB Ratio 1.1 RATIO (0.9-2.4); AST(SGOT) 18 U/L (15-37); Alanine Aminotransfer ALT/SGPT 47 U/L (16-61); Albumin, Serum 3.9 g/dL (3.2-5.0); Alkaline Phosphatase 63 U/L (45-117); Anion Gap 6 (5-15); BUN 18 mg/dL (7-18); BUN/Creat Ratio 16.4 RATIO (10-20); Calcium,Total 8.5 mg/dL (8.5-10.1); Chloride 106 mmol/L (98-107); Cholesterol 201 mg/dL (200); EST Glomerular Filtration Rate 73 mL/min (>60); Est Glom Filt Rate - Afr Amer 89 mL/min (>60); Globulin 3.5 g/dL (2.2-4.2); Glucose 97 mg/dL (74-106); High Density Lipoprotein 31 mg/dL; Potassium 3.7 mmol/L (3.5-5.1); Protein, Total 7.4 g/dL (6.4-8.2); Sodium Level 139 mmol/L (136-145); Thyroid Stim Hormone (TSH) 1.82 uIU/mL (0.358-3.74); Triglycerides 304 mg/dL; Very Low Density Lipoprotein 61 mg/dL (5-40)
[2020-11-01 12:39] LABS: Color, Urine Yellow (Yellow); Glucose, Dipstick Normal (Normal); Ketone-Dipstick Negative (Negative); Leukocyte Esterase-Dipstick Negative /ul (Negative); Nitrite-Dipstick Negative (Negative); Occult Blood-Urine Negative /ul (Negative); Protein-Dipstick Negative (Negative); Specific Gravity, Urine 1.015 (1.002-1.030); Urine Bilirubin Dipstick Negative (Negative); Urine Clarity Clear (Clear); Urine Urobilinogen Normal (Normal)
[2020-11-01 12:50] LABS: White Blood Cells 0-5 SEEN /hpf (0-5)
== END ==
PROVIDERS: PCP Family Medicine; Visit Provider Family Medicine
DX: I10 Essential (primary) hypertension (principal); E78.1 Pure hyperglyceridemia
CPT/HCPCS: 36415; 80053; 80061; 81001; 84443; 85025

== ENCOUNTER 2021-05-03 07:57 | Outpatient (CLI) | payer BC, SELFPAY ==
[2021-05-03 10:04] LABS: Absolute Lymphocyte Count 2.03 X10^3/uL (0.83-4.51); Absolute Neutrophil Count 3.4 X10^3/uL (2.0-7.7); Basophil# 0.04 X10^3/uL; Basophil% 0.7 % (0-1); Eosinophil# 0.06 X10^3/uL; Hematocrit 46.2 % (40-54); Hemoglobin 16.5 g/dL (13.0-16.5); Lymphocyte # 2.03 X10^3/ul (0.83-4.51); Lymphocyte % 34.6 % (19-41); Mean Corp Hgb Conc 35.7 g/dL (32-36); Mean Corpuscular Hgb 31.5 pg (27.0-32.0); Mean Corpuscular Volume 88.2 fL (80-94); Mean Platelet Vol. 11.8 fl (6.2-12.0); Monocyte# 0.35 X10^3/uL; NRBC Flagged by Analyzer 0 % (0-5); Neutrophil # 3.37 X10^3/uL (2.7-7.7); Neutrophil % 57.5 % (47-70); Platelet Count 230 K/mm3 (150-450); RBC Distribution Width CV 11.9 % (11.6-14.6); RBC Distribution Width SD 38.1 fl (35.1-43.9); Red Blood Count 5.24 M/mm3 (4.6-6.2); White Blood Count 5.9 K/mm3 (4.4-11.0)
[2021-05-03 10:31] LABS: ALB/GLOB Ratio 1.2 RATIO (0.9-2.4); AST(SGOT) 17 U/L (15-37); Alanine Aminotransfer ALT/SGPT 40 U/L (16-61); Albumin, Serum 3.8 g/dL (3.2-5.0); Alkaline Phosphatase 60 U/L (45-117); Anion Gap 5 (5-15); BUN 15 mg/dL (7-18); BUN/Creat Ratio 14.3 RATIO (10-20); Calcium,Total 8.9 mg/dL (8.5-10.1); Chloride 106 mmol/L (98-107); Cholesterol 203 mg/dL (200); Creatinine, Serum 1.05 mg/dL (0.70-1.30); EST Glomerular Filtration Rate 77 mL/min (>60); Est Glom Filt Rate - Afr Amer 93 mL/min (>60); Globulin 3.3 g/dL (2.2-4.2); Glucose 93 mg/dL (74-106); High Density Lipoprotein 32 mg/dL; Potassium 3.4 mmol/L (3.5-5.1); Protein, Total 7.1 g/dL (6.4-8.2); Sodium Level 139 mmol/L (136-145); Triglycerides 261 mg/dL; Very Low Density Lipoprotein 52 mg/dL (5-40)
== END 2021-05-03 23:59 | disposition home or self-care (01) ==
LOC: MFPLAB 08:00
PROVIDERS: PCP Family Medicine; Referring Provider Family Medicine; Visit Provider Family Medicine
DX: I10 Essential (primary) hypertension (principal); E78.1 Pure hyperglyceridemia
CPT/HCPCS: 36415; 80053; 80061; 85025

== ENCOUNTER → 2021-11-06 | Outpatient (CLI) | payer BC, SELFPAY ==
[2021-11-06 08:08] LABS: Bacteria 0 SEEN /hpf (None Seen); Mucous, Urine 0 SEEN /hpf (<or=2+); Red Blood Cells-Urine 0 SEEN /hpf (0-5); Squamous Epithelial Cells - UA 0 SEEN /hpf (0-5); White Blood Cells 0 SEEN /hpf (0-5)
[2021-11-06 10:05] LABS: Absolute Lymphocyte Count 2.14 X10^3/uL (0.83-4.51); Absolute Neutrophil Count 3.1 X10^3/uL (2.0-7.7); Basophil# 0.04 X10^3/uL; Basophil% 0.7 % (0-1); Eosinophil# 0.08 X10^3/uL; Eosinophils% 1.4 % (0-5); Hematocrit 45.8 % (40-54); Hemoglobin 16.4 g/dL (13.0-16.5); Lymphocyte # 2.14 X10^3/ul (0.83-4.51); Lymphocyte % 37.5 % (19-41); Mean Corp Hgb Conc 35.8 g/dL (32-36); Mean Corpuscular Hgb 31.2 pg (27.0-32.0); Mean Corpuscular Volume 87.2 fL (80-94); Mean Platelet Vol. 11.5 fl (6.2-12.0); Monocyte# 0.35 X10^3/uL; Monocyte% 6.1 % (0-10); NRBC Flagged by Analyzer 0 % (0-5); Neutrophil # 3.07 X10^3/uL (2.7-7.7); Neutrophil % 53.8 % (47-70); Platelet Count 218 K/mm3 (150-450); RBC Distribution Width CV 11.8 % (11.6-14.6); RBC Distribution Width SD 37.4 fl (35.1-43.9); Red Blood Count 5.25 M/mm3 (4.6-6.2); White Blood Count 5.7 K/mm3 (4.4-11.0)
[2021-11-06 10:11] LABS: Color, Urine Yellow (Yellow); Glucose, Dipstick Normal (Normal); Ketone-Dipstick Negative (Negative); Leukocyte Esterase-Dipstick Negative /ul (Negative); Nitrite-Dipstick Negative (Negative); Occult Blood-Urine Negative /ul (Negative); Protein-Dipstick Negative (Negative); Specific Gravity, Urine 1.015 (1.002-1.030); Urine Bilirubin Dipstick Negative (Negative); Urine Clarity Clear (Clear); Urine Urobilinogen Normal (Normal)
[2021-11-06 11:26] LABS: ALB/GLOB Ratio 1.3 RATIO (0.9-2.4); AST(SGOT) 25 U/L (15-37); Alanine Aminotransfer ALT/SGPT 47 U/L (16-61); Albumin, Serum 3.9 g/dL (3.2-5.0); Alkaline Phosphatase 64 U/L (45-117); Anion Gap 8 (5-15); BUN 17 mg/dL (7-18); BUN/Creat Ratio 16.2 RATIO (10-20); Chloride 107 mmol/L (98-107); Cholesterol 208 mg/dL (200); Creatinine, Serum 1.05 mg/dL (0.70-1.30); EST Glomerular Filtration Rate 77 mL/min (>60); Est Glom Filt Rate - Afr Amer 93 mL/min (>60); Glucose 104 mg/dL (74-106); High Density Lipoprotein 35 mg/dL; Potassium 4.2 mmol/L (3.5-5.1); Protein, Total 6.9 g/dL (6.4-8.2); Sodium Level 141 mmol/L (136-145); Triglycerides 237 mg/dL; Very Low Density Lipoprotein 47 mg/dL (5-40)
== END | disposition home or self-care (01) ==
LOC: MFPLAB 08:04
PROVIDERS: PCP Family Medicine; Visit Provider Family Medicine
DX: I10 Essential (primary) hypertension (principal); E78.1 Pure hyperglyceridemia
CPT/HCPCS: 36415; 80053; 80061; 81001; 85025

== ENCOUNTER → 2022-05-02 | Outpatient (CLI) | payer BC, SELFPAY ==
[2022-05-02 10:09] LABS: Absolute Neutrophil Count 3.1 X10^3/uL (2.0-7.7); Basophil# 0.04 X10^3/uL; Basophil% 0.7 % (0-1); Eosinophil# 0.06 X10^3/uL; Eosinophils% 1.1 % (0-5); Hematocrit 47.1 % (40-54); Hemoglobin 16.4 g/dL (13.0-16.5); Lymphocyte % 35.5 % (19-41); Mean Corp Hgb Conc 34.8 g/dL (32-36); Monocyte# 0.39 X10^3/uL; Monocyte% 6.9 % (0-10); NRBC Flagged by Analyzer 0 % (0-5); Neutrophil # 3.14 X10^3/uL (2.7-7.7); Neutrophil % 55.6 % (47-70); Platelet Count 209 K/mm3 (150-450); RBC Distribution Width SD 39.3 fl (35.1-43.9); Red Blood Count 5.29 M/mm3 (4.6-6.2); White Blood Count 5.6 K/mm3 (4.4-11.0)
[2022-05-02 11:00] LABS: ALB/GLOB Ratio 1.2 RATIO (0.9-2.4); AST(SGOT) 28 U/L (15-37); Alanine Aminotransfer ALT/SGPT 41 U/L (16-61); Albumin, Serum 3.9 g/dL (3.2-5.0); Alkaline Phosphatase 61 U/L (45-117); Anion Gap 8 (5-15); BUN 16 mg/dL (7-18); Calcium,Total 9.2 mg/dL (8.5-10.1); Chloride 105 mmol/L (98-107); Cholesterol 189 mg/dL (200); Creatinine, Serum 1.07 mg/dL (0.70-1.30); EST Glomerular Filtration Rate 75 mL/min (>60); Est Glom Filt Rate - Afr Amer 91 mL/min (>60); Globulin 3.3 g/dL (2.2-4.2); Glucose 93 mg/dL (74-106); High Density Lipoprotein 32 mg/dL; PSA,Total - Annual Screen 1.15 ng/mL (0.00-4.00); Potassium 3.5 mmol/L (3.5-5.1); Protein, Total 7.2 g/dL (6.4-8.2); Sodium Level 141 mmol/L (136-145); Triglycerides 229 mg/dL; Very Low Density Lipoprotein 46 mg/dL (5-40)
== END | disposition home or self-care (01) ==
LOC: MFPLAB 08:07
PROVIDERS: PCP Family Medicine; Referring Provider Family Medicine; Visit Provider Family Medicine
DX: I10 Essential (primary) hypertension (principal); E78.1 Pure hyperglyceridemia; Z12.5 Encounter for screening for malignant neoplasm of prostate
CPT/HCPCS: 36415; 80053; 80061; 84153; 85025; G0103

== ENCOUNTER → 2022-11-21 | Outpatient (CLI) | payer BC, SELFPAY ==
[2022-11-21 08:10] LABS: Bacteria 0 SEEN /hpf (None Seen); Mucous, Urine 0 SEEN /hpf (<or=2+); Red Blood Cells-Urine 0 SEEN /hpf (0-5); Squamous Epithelial Cells - UA 0 SEEN /hpf (0-5); White Blood Cells 0 SEEN /hpf (0-5)
[2022-11-21 10:15] LABS: Absolute Lymphocyte Count 2.06 X10^3/uL (0.83-4.51); Absolute Neutrophil Count 3.8 X10^3/uL (2.0-7.7); Basophil# 0.04 X10^3/uL; Basophil% 0.6 % (0-1); Color, Urine Yellow (Yellow); Eosinophil# 0.05 X10^3/uL; Eosinophils% 0.8 % (0-5); Glucose, Dipstick Normal (Normal); Hematocrit 45.3 % (40-54); Hemoglobin 15.4 g/dL (13.0-16.5); Ketone-Dipstick Negative (Negative); Leukocyte Esterase-Dipstick Negative /ul (Negative); Lymphocyte # 2.06 X10^3/ul (0.83-4.51); Lymphocyte % 32.1 % (19-41); Mean Corpuscular Hgb 30.2 pg (27.0-32.0); Mean Corpuscular Volume 88.8 fL (80-94); Mean Platelet Vol. 11.7 fl (6.2-12.0); Monocyte# 0.48 X10^3/uL; Monocyte% 7.5 % (0-10); NRBC Flagged by Analyzer 0 % (0-5); Neutrophil # 3.76 X10^3/uL (2.7-7.7); Neutrophil % 58.7 % (47-70); Nitrite-Dipstick Negative (Negative); Occult Blood-Urine Negative /ul (Negative); Platelet Count 217 K/mm3 (150-450); Protein-Dipstick Negative (Negative); RBC Distribution Width CV 12.1 % (11.6-14.6); RBC Distribution Width SD 39.8 fl (35.1-43.9); Specific Gravity, Urine 1.015 (1.002-1.030); Urine Bilirubin Dipstick Negative (Negative); Urine Clarity Clear (Clear); Urine Urobilinogen Normal (Normal); White Blood Count 6.4 K/mm3 (4.4-11.0)
[2022-11-21 10:48] LABS: ALB/GLOB Ratio 1.2 RATIO (0.9-2.4); AST(SGOT) 18 U/L (15-37); Alanine Aminotransfer ALT/SGPT 38 U/L (16-61); Albumin, Serum 3.8 g/dL (3.2-5.0); Alkaline Phosphatase 61 U/L (45-117); Anion Gap 5 (5-15); BUN 18 mg/dL (7-18); BUN/Creat Ratio 16.2 RATIO (10-20); Calcium,Total 8.9 mg/dL (8.5-10.1); Chloride 105 mmol/L (98-107); Cholesterol 201 mg/dL (200); Creatinine, Serum 1.11 mg/dL (0.70-1.30); EST Glomerular Filtration Rate 72 mL/min (>60); Est Glom Filt Rate - Afr Amer 87 mL/min (>60); Globulin 3.3 g/dL (2.2-4.2); Glucose 102 mg/dL (74-106); High Density Lipoprotein 33 mg/dL; Potassium 3.5 mmol/L (3.5-5.1); Protein, Total 7.1 g/dL (6.4-8.2); Sodium Level 138 mmol/L (136-145); Thyroid Stim Hormone (TSH) 1.75 uIU/mL (0.358-3.74); Triglycerides 211 mg/dL; Very Low Density Lipoprotein 42 mg/dL (5-40)
== END | disposition home or self-care (01) ==
LOC: MTLAB 08:06
PROVIDERS: PCP Family Medicine; Referring Provider Family Medicine; Visit Provider Family Medicine
DX: I10 Essential (primary) hypertension (principal)
CPT/HCPCS: 36415; 80053; 80061; 81001; 84443; 85025

== ENCOUNTER → 2023-05-22 | Outpatient (CLI) | payer BC, SELFPAY ==
--- OUTSIDE RECORDS SUMMARY | 2023-05-22 08:21 | XMS RPT_ITS | CCD ---
Author Name Unknown Address [address] [place] [address] Organization [facility] Care Team Providers Care Robotics Engineer Name Role Phone Seema Wilkinson LPN Unavailable Seema Wilkinson LPN Unavailable Now Nurse Unavailable Unavailable Now Nurse Unavailable Unavailable Seema Wilkinson LPN Unavailable Medications Completed/Discontinued Medications Medication Drug Class(es) Dates Sig (Normalized) Sig (Original) sertraline 50 mg oral tablet (5 sources) Serotonin Reuptake Inhibitor Start: 10-18-2014 take 1 tablet by mouth once daily ZOLOFT 50 MG TABS One tablet by mouth daily SERTRALINE HCL [id number] Teddy Fadumo Malini DO Problems Active Problems Problem Classification Problem Date Documented Da te Episodic/Chronic Anxiety disorders (5 sources) Anxiety disorder; Translations: [Anxiety disorder, unspecified] Onset: 10-18-2014 10-18-2014 Chronic Disorders of lipid metabolism (5 sources) Hypertriglyceride anthony; Translations: [Pure hyperglyceridemia ] Onset: 10-18-2014 10-18-2014 Chronic Other nutritional; endocrine; and metabolic disorders (5 sources) Obesity; Translations: [Obesity, unspecified] Onset: 10-18-2014 10-18-2014 Chronic Unclassified (4 sources) Screening for malignant neoplasm of colon ; Translations: [Encounter for screening for malignant neoplasm of colon] Onset: 10-18-2014 10-18-2014 Past or Other Problems Problem Classification Problem Date Documented Da te Episodic/Chronic Other circulatory disease (5 sources) Elevated blood-pressure reading without diagnosis of hypertension; Translations: [Elevated blood-pressure reading, without diagnosis of hypertension] Onset: 10-18-2014 10-18-2014 Episodic Other connective tissue disease (5 sources) Rotator cuff syndrome; Translations: [Unspecified rotator cuff tear or rupture of right shoulder, not specified as traumatic] Onset: 10-18-2014 10-18-2014 Episodic Other non-traumatic joint disorders (4 sources) Elbow joint pain; Translations: [Pain in left elbow] Onset: 10-31-2016 10-31-2016 Episodic Sprains and strains (4 sources) Strain of unspecified muscles, fascia and tendons at forearm level, unspecified arm, initial encounter; Translations: [Strain of unspecified muscles, fascia and tendons at forearm level, unspecified arm, initial encounter] Onset: 10-31-2016 10-31-2016 Episodic Results Test Name Value Interpretation Reference Range Facil ity Vital Signs Date Time Vital Sign Value Performing Clinician Tereso becerra 11-11-2016 07:26-0400 BMI (Body Mass Index) 33.45 kg/m2 Seema Wilkinson LPN [facility] Work Phone: 11-11-2016 07:26-0400 Body Temperature 97 [degF] Seema Wilkinson LPN [facility] Work Phone: 11-11-2016 07:26-0400 BP Diastolic 84 mm[Hg] Seema Wilkinson LPN [facility] Work Phone: 11-11-2016 07:26-0400 BP Systolic 132 mm[Hg] Seema Wilkinson LPN [facility] Work Phone: 11-11-2016 07:26-0400 Height 172.72 cm Seema Wilkinson LPN [facility] Work Phone: 11-11-2016 07:26-0400 Pulse (Heart Rate) 70 /min Seema Wilkinson LPN [facility] Work Phone: 11-11-2016 07:26-0400 Respiratory Rate 14 /min Seema Wilkinson LPN [facility] Work Phone: 11-11-2016 07:26-0400 Weight 99.79 kg Seema Wilkinson LPN [facility] Work Phone: 10-31-2016 09:00-0400 BMI (Body Mass Index) 33.84 kg/m2 [facility] Work Phone: 10-31-2016 09:00-0400 Body Temperature 97.4 [degF] [facility] Work Phone: 10-31-2016 09:00-0400 BP Diastolic 96 mm[Hg] [facility] Work Phone: 10-31-2016 09:00-0400 BP Systolic 140 mm[Hg] [facility] Work Phone: 10-31-2016 09:00-0400 Height 172.72 cm [facility] Work Phone: 10-31-2016 09:00-0400 Pulse (Heart Rate) 72 /min [facility] Work Phone: 10-31-2016 09:00-0400 Weight 100.97 kg [facility] Work Phone: 10-18-2014 07:59-0400 BMI (Body Mass Index) 32.75 kg/m2 [facility] Work Phone: 10-18-2014 07:59-0400 Body Temperature 98.5 [degF] [facility] Work Phone: 10-18-2014 07:59-0400 BP Diastolic 90 mm[Hg] [facility] Work Phone: 10-18-2014 07:59-0400 BP Systolic 130 mm[Hg] [facility] Work Phone: 10-18-2014 07:59-0400 BSA (Body Surface Area) 2.14 m2 [facility] Work Phone: 10-18-2014 07:59-0400 Height 173.99 cm [facility] Work Phone: 10-18-2014 07:59-0400 Pulse (Heart Rate) 79 /min [facility] Work Phone: 10-18-2014 07:59-0400 Respiratory Rate 16 /min [facility] Work Phone: 10-18-2014 07:59-0400 Weight 99.[address] [facility] Work Phone: Procedures Date Procedure Procedure Detail Performing Clinician Start: 10-18-2014 Screening for malignant neoplasm of colon Screening, colon cancer Seema Wilkinson VANGIE Start: 10-18-2014 End: 11-27-2014 Surgery Referral Teddy Nayak DO Work Phone: Plan of Treatment Date Care Activity Detail Author Start: 11-11-2016 End: 11-11-2016 Appointment Appointment [facility] Work Phone: Start: 10-31-2016 End: 10-31-2016 Appointment Appointment [facility] Work Phone: Start: 10-31-2016 End: 10-31-2016 X-ray exam of elbow X-Ray, Elbow [facility] Work Phone: Start: 10-18-2014 End: 10-18-2014 *CMP Complete Metabolic Panel *CMP Complete Metabolic Panel [facility] Work Phone: Start: 10-18-2014 End: 10-18-2014 Lipid panel [AGGREGATE] *Lipid Profile [facility] Work Phone: Start: 10-18-2014 End: 11-27-2014 Surgery Referral Surgery Referral Art Sirenamaria guadalupe, [address], [address], [place], [place], [facility] Work Phone: Start: 10-18-2014 End: 10-18-2014 Thyroid stimulating hormone (TSH) *TSH [facility] Work Phone: Progress note 01-18-2021 Note Date & Type Note Facility 01-18-2021 Note HNO ID: [id number] Author: Ariella Hyde PA-C Service: ? Author Type: Physician Log Buyer Type: Progress Notes Filed: 01/18/2021 8:55 AM Note Text: In lieu of an in-person visit due to COVID-19 concerns, a distance health visit was performed on the patient. [facility] but patient encountered difficulty signing into MyChart and requested to complete visit via telephone. Patient is aware that I am not fully able to assess symptoms and do a full physical examination including vital signs assessment at this time. Patient consents to this encounter. No video was used in the evaluation of this patient, as the patient preferred a telephone call. I personally called patient by telephone. FOLLOW UP VISIT - ENDOSCOPY NAME: Corie Rich [facility] NO.: [id number] DATE OF SERVICE: 01/18/2021 : 1965 REFERRING PHYSICIAN: Ciro Hunt MD Corie is a patient I am following for surveillance colonoscopy due to personal history of colon polyps. Dr. Benitez performed lower endoscopy on 01/07/21. The patient was found to have non-bleeding internal hemorrhoids and a 4 mm sigmoid colon polyp which was removed. Pathology demonstrated: FINAL DIAGNOSIS Colon, sigmoid polyp, biopsy (A) - Tubular adenoma. The patient notes no complaints since the procedure. Assessment IMPRESSION: s/p colonoscopy with polypectomy, single 4 mm tubular adenoma PLAN: The operative findings and pathology report were reviewed with the patient, and the patient has had the opportunity to ask questions and have questions answered. If the patient notes any problems or changes in bowel function, the patient should contact me immediately. Otherwise I recommend follow up endoscopy in 5 years. HM updated and recall letter generated. Patient verbalized understanding of all above and agreed with the plan Diagnoses: (D36.9) Tubular adenoma (primary encounter diagnosis) (Z86.010) Personal history of colonic polyps I spent a total of 20 minutes on the date of the service which included preparing to see the patient, completing clinical documentation, obtaining and/or reviewing separately obtained history, counseling and educating the patient/family/caregiver, communicating with other HCPs (not separately reported), independently interpreting results (not separately reported) and communicating results to the patient/family/caregiver. Ariella Hyde PA-C [facility] Progress note 12-19-2020 Note Date & Type Note Facility 12-19-2020 Note HNO ID: [id number] Author: Ariella Hyde PA-C Service: ? Author Type: Physician Log Buyer Type: Progress Notes Filed: 12/20/2020 4:00 PM Note Text: HISTORY AND PHYSICAL Corie Rich 1965 REFERRING PHYSICIAN: Ciro Hunt, * CHIEF COMPLAINT: Consult (Colonoscopy) HPI: The patient is a 55 year old male referred for endoscopy. Corie notes a personal history of colon polyps. Patient denies any change in bowel habits, weight changes, blood in stools, black tarry stools or abdominal pain. Denies family history of colon issues. The patient notes no upper GI complaints. Corie has undergone prior endoscopy. Most recent colonoscopy 10/12/[address] Benitez at [facility], records reviewed. Patient had a small descending colon polyp removed which returned as tubular adenoma. Dr. Benitez recommended repeat colonoscopy in 3 years. Patient's past medical history is significant for hypertension, hypertriglyceridemia and obesity. He follows with Dr. Hunt in primary care, and most recent office visit notes are reviewed. Patient denies any chest pain, shortness of breath or recent hospitalizations PAST MEDICAL HISTORY Diagnosis Date - High blood pressure - High triglycerides PAST SURGICAL HISTORY Procedure Laterality Date - COLONOSCOPY GEN ANES 2018 Current Outpatient Medications Medication Sig - hydroCHLOROthiazide (HYDRODIURIL, ESIDRIX) 25 mg tablet Take 25 mg by mouth once daily. - icosapent ethyl (VASCEPA) 1 gram capsule take 2 capsules by mouth twice a day with food No current facility-administered medications for this visit. ALLERGIES: Patient has no known allergies. PERSONAL HISTORY: Social History Tobacco Use - Smoking status: Never Smoker - Smokeless tobacco: Never Used Substance Use Topics - Alcohol use: Not on file - Drug use: Not on file FAMILY HISTORY: FAMILY HISTORY Problem Relation Age of Onset - Hypertension Mother - Heart Attack Father REVIEW OF SYMPTOMS: The review of systems data was entered by the nurse and reviewed by vt Nursing Notes: Minerva Butcher LPN 12/19/2020 8:41 AM Signed REVIEW OF SYSTEMS: General: The patient denies fatigue, denies weight loss, denies weight gain, denies feeling hot, and denies feelings of cold. Eyes: The patient denies glaucoma, denies eye injury/surgery, wears glasses or contacts. Ear/Nose/Throat: The patient NOTES allergies, denies hayfever, denies ear infections, and denies bloody noses. Cardiovascular: The patient denies chest pain, denies heart disease, NOTES high blood pressure,denies cardiac stent, denies prior heart attack, denies irregular heart beat, NOTES high cholesterol, denies poor circulation, denies heart failure, other cardiac issues, denies claudication, denies cold feet, denies peripheral arterial stent. Respiratory: The patient denies tuberculosis, denies pneumonia, denies frequent cough, denies pulmonary embolism, denies shortness of breath, and denies coughing up blood. Gastrointestinal: The patient denies difficulty swallowing, denies acid reflux, denies ulcers, denies vomiting, denies jaundice/hepatitis, denies gallbladder problems, denies black or tarry stools, denies hemorrhoids, denies bleeding from rectum, denies diverticulitis, denies constipation, denies diarrhea, denies loss of stool control, and denies hernias. Kidney/Bladder: The patient denies kidney stones, denies urine infections, and denies bloody urine. Skin: The patient denies a history of skin cancer, denies bleeding/changing moles, and denies a history of skin rash. Neurologic: The patient denies a history of epilepsy/convulsions, denies headaches, denies head/spinal injuries, and denies stroke/TIA. Psychiatric: The patient denies psychiatric medications, denies depression, and denies voices, denies substance abuse. Endocrine: The patient denies thyroid disorders, denies diabetes, and denies hormonal problems. Hematologic: The patient denies a history of bruising, denies bleeding, and denies anemia, denies blood clots. Infections: The patient NOTES a history of measles and mumps, denies rheumatic fever, and denies sexually transmitted diseases. Musculoskeletal: The patient denies back pain/injury, denies back problems, denies sciatica, NOTES knee/foot trouble, denies arthritis, or denies gout. When was patient's last Mammogram screening? N/A Last Colonoscopy: 2018 Minerva Butcher LPN I have confirmed and edited as necessary, the PFSH and ROS obtained by others. Ariella Hyde PA-C PHYSICAL EXAMINATION: General: The patient is 55 year old male, well nourished, well hydrated in no acute distress. The patient is oriented to time, place, and person. VITALS: Blood pressure 132/84, pulse 76, temperature 36.4 ?C (97.6 ?F), height 172.7 cm (5' 8 ), weight 100.7 kg (222 lb), SpO2 95 %. Body mass index is 33.75 kg/m?. HEENT: Normal cephalic, ataumatic, pupils are equally rou (more content not included)... [facility] Summary Purpose Family History No Family History Records Found Advance Directives No Advanced Directives Records Found Additional Source Comments (unrecognized sect ion and content) No Status Records Found INFORMATION SOURCE (unrecogn ized section and content) FOR RECORDS PERTAINING TO PATIENTS WHO ARE OR HAVE BEEN ENROLLED IN A CHEMICAL DEPENDENCY/SUBSTANCEABUSE PROGRAM, SOME INFORMATION MAY BE OMITTED. This clinical summary was aggregated from multiple sources. Caution should be exercised in using it in the provision of clinical care. This summary normalizes information from multiple sources, and as a consequence, information in this document may materially change the coding, format and clinical context of patient data. In addition, data may be omitted in some cases. CLINICAL DECISIONS SHOULD BE BASED ON THE PRIMARY CLINICAL RECORDS. [facility] [employer] provides no warranty or guarantee of the accuracy or completeness of information in this document.
[2023-05-22 10:56] LABS: Absolute Neutrophil Count 3.9 X10^3/uL (2.0-7.7); Basophil# 0.05 X10^3/uL; Basophil% 0.7 % (0-1); Eosinophil# 0.08 X10^3/uL; Eosinophils% 1.1 % (0-5); Hematocrit 45.7 % (40-54); Hemoglobin 15.5 g/dL (13.0-16.5); Lymphocyte % 35.9 % (19-41); Mean Corp Hgb Conc 33.9 g/dL (32-36); Mean Corpuscular Hgb 29.7 pg (27.0-32.0); Mean Corpuscular Volume 87.5 fL (80-94); Mean Platelet Vol. 11.8 fl (6.2-12.0); Monocyte# 0.39 X10^3/uL; Monocyte% 5.6 % (0-10); NRBC Flagged by Analyzer 0 % (0-5); Neutrophil # 3.91 X10^3/uL (2.7-7.7); Neutrophil % 56.1 % (47-70); Platelet Count 231 K/mm3 (150-450); RBC Distribution Width CV 11.9 % (11.6-14.6); RBC Distribution Width SD 38.1 fl (35.1-43.9); Red Blood Count 5.22 M/mm3 (4.6-6.2)
[2023-05-22 11:36] LABS: ALB/GLOB Ratio 1.3 RATIO (0.9-2.4); AST(SGOT) 27 U/L (15-37); Alanine Aminotransfer ALT/SGPT 70 U/L (16-61); Albumin, Serum 4.1 g/dL (3.2-5.0); Alkaline Phosphatase 64 U/L (45-117); Anion Gap 5 (5-15); BUN 14 mg/dL (7-18); BUN/Creat Ratio 15.1 RATIO (10-20); Calcium,Total 8.8 mg/dL (8.5-10.1); Chloride 105 mmol/L (98-107); Cholesterol 188 mg/dL (200); Creatinine, Serum 0.93 mg/dL (0.70-1.30); EST Glomerular Filtration Rate 89 mL/min (>60); Est Glom Filt Rate - Afr Amer 107 mL/min (>60); Globulin 3.1 g/dL (2.2-4.2); Glucose 97 mg/dL (74-106); High Density Lipoprotein 30 mg/dL; PSA,Total - Annual Screen 1.29 ng/mL (0.00-4.00); Potassium 3.5 mmol/L (3.5-5.1); Protein, Total 7.2 g/dL (6.4-8.2); Sodium Level 139 mmol/L (136-145); Triglycerides 292 mg/dL; Very Low Density Lipoprotein 58 mg/dL (5-40)
== END | disposition home or self-care (01) ==
LOC: MTLAB 07:59
PROVIDERS: PCP Family Medicine; Referring Provider Family Medicine; Visit Provider Family Medicine
DX: I10 Essential (primary) hypertension (principal); Z12.5 Encounter for screening for malignant neoplasm of prostate
CPT/HCPCS: 36415; 80053; 80061; 84153; 85025; G0103

== ENCOUNTER → 2023-06-03 | Outpatient (CLI) | payer BC, SELFPAY ==
[2023-06-03 17:50] LABS: Bilirubin, Direct 0.19 mg/dL (0.00-0.30)
== END | disposition home or self-care (01) ==
LOC: MFPLAB 15:57
PROVIDERS: PCP Family Medicine; Visit Provider Family Medicine
DX: E80.6 Other disorders of bilirubin metabolism (principal)
CPT/HCPCS: 36415; 82247; 82248

== ENCOUNTER → 2023-11-25 | Outpatient (CLI) | payer BC, SELFPAY ==
[2023-11-25 08:08] LABS: Mucous, Urine 0 SEEN /hpf (<or=2+); Red Blood Cells-Urine 0 SEEN /hpf (0-5)
[2023-11-25 10:07] LABS: Absolute Lymphocyte Count 1.77 X10^3/uL (0.83-4.51); Absolute Neutrophil Count 3.4 X10^3/uL (2.0-7.7); Basophil# 0.03 X10^3/uL; Basophil% 0.5 % (0-1); Eosinophil# 0.09 X10^3/uL; Eosinophils% 1.6 % (0-5); Hematocrit 44.4 % (40-54); Hemoglobin 15.4 g/dL (13.0-16.5); Lymphocyte # 1.77 X10^3/ul (0.83-4.51); Lymphocyte % 30.9 % (19-41); Mean Corp Hgb Conc 34.7 g/dL (32-36); Mean Corpuscular Hgb 30.4 pg (27.0-32.0); Mean Corpuscular Volume 87.6 fL (80-94); Mean Platelet Vol. 11.9 fl (6.2-12.0); Monocyte# 0.38 X10^3/uL; Monocyte% 6.6 % (0-10); NRBC Flagged by Analyzer 0 % (0-5); Neutrophil # 3.44 X10^3/uL (2.7-7.7); Neutrophil % 60.2 % (47-70); Platelet Count 221 K/mm3 (150-450); RBC Distribution Width CV 12.1 % (11.6-14.6); RBC Distribution Width SD 38.6 fl (35.1-43.9); Red Blood Count 5.07 M/mm3 (4.6-6.2); White Blood Count 5.7 K/mm3 (4.4-11.0)
[2023-11-25 10:19] LABS: Color, Urine Yellow (Yellow); Glucose, Dipstick Normal (Normal); Ketone-Dipstick Negative (Negative); Leukocyte Esterase-Dipstick Negative /ul (Negative); Nitrite-Dipstick Negative (Negative); Occult Blood-Urine Negative /ul (Negative); Protein-Dipstick Negative (Negative); Urine Bilirubin Dipstick Negative (Negative); Urine Clarity Clear (Clear); Urine Urobilinogen Normal (Normal)
[2023-11-25 10:42] LABS: ALB/GLOB Ratio 1.1 RATIO (0.9-2.4); AST(SGOT) 23 U/L (15-37); Alanine Aminotransfer ALT/SGPT 45 U/L (16-61); Albumin, Serum 3.9 g/dL (3.2-5.0); Alkaline Phosphatase 59 U/L (45-117); Anion Gap 6 (5-15); BUN 15 mg/dL (7-18); BUN/Creat Ratio 15.7 RATIO (10-20); Chloride 104 mmol/L (98-107); Cholesterol 203 mg/dL (200); Creatinine, Serum 0.95 mg/dL (0.70-1.30); EST Glomerular Filtration Rate 86 mL/min (>60); Est Glom Filt Rate - Afr Amer 103 mL/min (>60); Globulin 3.4 g/dL (2.2-4.2); Glucose 106 mg/dL (74-106); High Density Lipoprotein 32 mg/dL; Potassium 3.5 mmol/L (3.5-5.1); Protein, Total 7.3 g/dL (6.4-8.2); Sodium Level 138 mmol/L (136-145); Triglycerides 302 mg/dL; Very Low Density Lipoprotein 60 mg/dL (5-40)
[2023-11-25 11:09] LABS: Bacteria 1+ /hpf (None Seen); Squamous Epithelial Cells - UA 0-5 SEEN /hpf (0-5); White Blood Cells 0-5 SEEN /hpf (0-5)
[2023-11-25 14:57] LABS: Hemoglobin A1c 5.3 % (3.8-5.6)
== END | disposition home or self-care (01) ==
LOC: MFPLAB 08:05
PROVIDERS: PCP Family Medicine; Visit Provider Family Medicine
DX: I10 Essential (primary) hypertension (principal); R73.09 Other abnormal glucose
CPT/HCPCS: 36415; 80053; 80061; 81001; 83036; 84443; 85025

== ENCOUNTER → 2024-05-31 | Outpatient (CLI) | payer BC, SELFPAY ==
[2024-05-31 08:19] LABS: Bacteria 0 SEEN /hpf (None Seen); Mucous, Urine 0 SEEN /hpf (<or=2+); Squamous Epithelial Cells - UA 0 SEEN /hpf (0-5); White Blood Cells 0 SEEN /hpf (0-5)
[2024-05-31 10:43] LABS: Absolute Lymphocyte Count 2.02 X10^3/uL (0.83-4.51); Absolute Neutrophil Count 3.8 X10^3/uL (2.0-7.7); Basophil# 0.03 X10^3/uL; Basophil% 0.5 % (0-1); Eosinophil# 0.04 X10^3/uL; Eosinophils% 0.6 % (0-5); Hematocrit 44.8 % (40-54); Hemoglobin 15.7 g/dL (13.0-16.5); Lymphocyte # 2.02 X10^3/ul (0.83-4.51); Lymphocyte % 32.3 % (19-41); Mean Corpuscular Hgb 31.2 pg (27.0-32.0); Mean Corpuscular Volume 89.1 fL (80-94); Mean Platelet Vol. 11.6 fl (6.2-12.0); Monocyte# 0.36 X10^3/uL; Monocyte% 5.8 % (0-10); NRBC Flagged by Analyzer 0 % (0-5); Neutrophil # 3.79 X10^3/uL (2.7-7.7); Neutrophil % 60.5 % (47-70); Platelet Count 210 K/mm3 (150-450); RBC Distribution Width CV 12.3 % (11.6-14.6); RBC Distribution Width SD 39.7 fl (35.1-43.9); Red Blood Count 5.03 M/mm3 (4.6-6.2); White Blood Count 6.3 K/mm3 (4.4-11.0)
[2024-05-31 11:41] LABS: Color, Urine Straw (Yellow); Glucose, Dipstick Normal (Normal); Ketone-Dipstick Negative (Negative); Leukocyte Esterase-Dipstick Negative /ul (Negative); Nitrite-Dipstick Negative (Negative); Occult Blood-Urine Negative /ul (Negative); Protein-Dipstick 15 mg/dl (Negative); Urine Bilirubin Dipstick Negative (Negative); Urine Clarity Clear (Clear); Urine Urobilinogen Normal (Normal); Urine pH 6.5 (5.0 - 8.0)
[2024-05-31 12:01] LABS: ALB/GLOB Ratio 1.8 RATIO (0.9-2.4); AST(SGOT) 23 U/L (<=37); Alanine Aminotransfer ALT/SGPT 32 U/L (<=46); Albumin, Serum 4.6 g/dL (3.4-4.8); Alkaline Phosphatase 65 U/L (40-129); Anion Gap 14 (5-15); BUN 14 mg/dL (4-19); BUN/Creat Ratio 13.5 RATIO (10-20); Calcium,Total 9.3 mg/dL (7.6-11.0); Carbon Dioxide 23.6 mmol/L (21.0-32.0); Chloride 103 mmol/L (98-108); Cholesterol 190 mg/dL (<=200); EST Glomerular Filtration Rate 86 (>60); Globulin 2.5 g/dL (2.2-4.2); Glucose 97 mg/dL (70-99); High Density Lipoprotein 35 mg/dL; Low Density Lipoprotein Calc. 104 mg/dL; PSA,Total - Annual Screen 1.13 ng/mL (0.02-4.00); Potassium 3.7 mmol/L (3.3-5.1); Protein, Total 7.1 g/dL (5.9-8.4); Sodium Level 141 mmol/L (133-145); Total Bilirubin 0.78 mg/dL (0.00-1.30); Triglycerides 255 mg/dL; Very Low Density Lipoprotein 51 mg/dL (5-40); cholesterol:hdl ratio screen 5.37
[2024-05-31 12:10] LABS: Red Blood Cells-Urine 0-5 SEEN /hpf (0-5)
== END | disposition home or self-care (01) ==
LOC: MFPLAB 08:14
PROVIDERS: PCP Family Medicine; Referring Provider Family Medicine; Visit Provider Family Medicine
DX: Z12.5 Encounter for screening for malignant neoplasm of prostate (principal); I10 Essential (primary) hypertension; E78.1 Pure hyperglyceridemia
CPT/HCPCS: 36415; 80053; 80061; 81001; 83735; 84153; 85025; G0103

== ENCOUNTER → 2024-11-18 | Outpatient (CLI) | payer BC, SELFPAY ==
[2024-11-18 08:12] LABS: Mucous, Urine 0 SEEN /hpf (<or=2+); Red Blood Cells-Urine 0 SEEN /hpf (0-5); Squamous Epithelial Cells - UA 0 SEEN /hpf (0-5)
[2024-11-18 10:25] LABS: Color, Urine Yellow (Yellow); Glucose, Dipstick Normal (Normal); Hematocrit 43.9 % (40-54); Hemoglobin 15.3 g/dL (13.0-16.5); Immature Granulocytes Count 0.030 X10^3/uL (0.0-0.0); Ketone-Dipstick Negative (Negative); Leukocyte Esterase-Dipstick Negative /ul (Negative); Mean Corp Hgb Conc 34.9 g/dL (32-36); Mean Corpuscular Volume 87.8 fL (80-94); Mean Platelet Vol. 11.9 fl (6.2-12.0); NRBC Flagged by Analyzer 0 % (0-5); Nitrite-Dipstick Negative (Negative); Occult Blood-Urine Negative /ul (Negative); Platelet Count 202 K/mm3 (150-450); Protein-Dipstick Negative (Negative); RBC Distribution Width CV 12.1 % (11.6-14.6); RBC Distribution Width SD 39.0 fl (35.1-43.9); Red Blood Count 5.00 M/mm3 (4.6-6.2); Specific Gravity, Urine 1.015 (1.002-1.030); Urine Bilirubin Dipstick Negative (Negative); White Blood Count 5.2 K/mm3 (4.4-11.0)
[2024-11-18 10:51] LABS: AST(SGOT) 25 U/L (<=37); Alanine Aminotransfer ALT/SGPT 40 U/L (<=46); Albumin, Serum 4.4 g/dL (3.4-4.8); Alkaline Phosphatase 61 U/L (40-129); Anion Gap 13 (5-15); BUN 17 mg/dL (4-19); BUN/Creat Ratio 19.5 RATIO (10-20); Calcium,Total 9.2 mg/dL (7.6-11.0); Carbon Dioxide 23.6 mmol/L (21.0-32.0); Chloride 102 mmol/L (98-108); Cholesterol 200 mg/dL (<=200); Globulin 2.6 g/dL (2.2-4.2); Glucose 103 mg/dL (70-99); Low Density Lipoprotein Calc. 115 mg/dL; Potassium 3.7 mmol/L (3.3-5.1); Triglycerides 239 mg/dL; Very Low Density Lipoprotein 48 mg/dL (5-40); cholesterol:hdl ratio screen 5.42
== END | disposition home or self-care (01) ==
LOC: MFPLAB 08:08
PROVIDERS: PCP Family Medicine; Referring Provider Family Medicine; Visit Provider Family Medicine
DX: Z12.5 Encounter for screening for malignant neoplasm of prostate (principal); I10 Essential (primary) hypertension
CPT/HCPCS: 36415; 80053; 80061; 81001; 85025